=== PATIENT | female | born 1940 | race Caucasian/White ===

== ENCOUNTER 2019-06-25 13:39 | Emergency (ER) | payer OTHER, BC ==
--- OUTSIDE RECORDS SUMMARY | 2019-06-25 13:51 | XMS REPORT ---
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 adjustment of mA and/or KV according to patient size, and/or utilization of iterative reconstruction [facility] Valerie NAME: OG[address] PHYS: Dom Zamora [facility] [place] [address] : 1940 AGE: 78 SEX: F LOC: IsiahERS PHONE # : [phone] EXAM DATE: 01/26/2019 STATUS: PRE ER FAX #: RAD #: D/C DT PAGE 1 Signed Report (CONTINUED) Patient Name: CRYSTAL FOLEY Unit No: [id number] EXAMS: CPT CODE: [id number] CT HEAD/BRAIN W/O CONT 37089 <Continued> technique. FINDINGS: Sulfur Burner views and reformats demonstrate normal anatomic alignment of the cervical spine. There is no evidence of acute fracture or dislocation. There is multilevel degenerative disc disease with anterior and posterior osteophytes, most notably at C4-5 and C5- 6. The prevertebral soft tissues are unremarkable. No bony fragments are seen in the central canal. The soft tissue contents of the spinal canal are not well evaluated. However, no CT evidence of central canal hematoma is identified. IMPRESSION: 1. No evidence of fracture or dislocation of the cervical spine. 2. Please note that CT scan is a less sensitive modality to evaluate epidural hematoma or cord injury. If there is a clinical concern further evaluation with MRI of the cervical spine could be obtained. 3. Degenerative disc disease most notably at C4-5 and C5-6. at 1355 Reported and signed by: Harvey Bañuelos MD CC: Dom Reynolds MD Dictated Date/Time: 01/26/2019 (4517) Technologist: Petros Ramos - Agency CTDI: 47.06 DLP: 757.79 Trnscrpt: 01/26/2019 (3845) [email or web address] LORE Cruz NAME: CRYSTAL FOLEY [address] [place] [address] Blvd PHYS:Dom Zamora [place], [place] [address] : 1940 AGE: 78 SEX: F LOC: VAL PHONE #: [phone] EXAM DATE: 01/26/2019 STATUS: PRE ER FAX #: [phone] RAD #: D/C DT PAGE 2 Signed Report Patient Name: CRYSTAL FOLEY Unit No: [id number] EXAMS: CPT CODE: [id number] CT HEAD/BRAIN W/O [id number] <Continued& gt; Orig Print D/T: S: 01/26/2019 (1358) LORE Cruz NAME: O[address] PHYS: Dom Zam[place], [place] [address] : 1940 AGE: 78 SEX: F LOC: B.ERS PHONE #: [phone] EXAM DATE : 01/26/2019 STATUS: PRE ER FAX #: [phone] RAD #: D/C DT PAGE3 Signed ReportBASIC METABOLIC [id number] 13:15:00 Test Item Value Reference Range Comments SODIUM (test code=NA) 141.0 mmol/L 133-144 POTASSIUM (test code=K) 4.0 mmol/L 3.5-5.1 CHLORIDE (test code=CL) 109 mmol/L 95-105 CARBON DIOXIDE (test 26 mmol/L 21-32 code=CO2) ANION GAP (test code=GAP) 6.0 GAP calc 4.0-15.0 GLUCOSE (test code=GLU) 118 MG/DL 70-110 BLOOD UREA NITROGEN (test 11 MG/DL 7-18 code=BUN) CREATININE (test 0.73 MG/DL 0.55-1.30 Results may be depressed code=CREAT) if patient is takingN-Acetylcysteine (NAC) and Metamizole (Dipyrone). CALCIUM (test code=CA) 8.7 MG/DL 8.5-10.1 INDEX HEMOLYSIS (test 2 TRACE 10-25 MG 1 NORMAL code=HEMINDEX) Index/DL INDEX ICTERIC (test 1 NORMAL <2 MG 1 NORMAL code=ICTINDEX) Index/DL INDEX LIPEMIA (test 1 NORMAL <50 MG 1 NORMAL code=LIPINDEX) Index/DL PT AND [id number] 13:13:00 Test Item Value Reference Range Comments PT PATIENT (test 12.1 SECONDS 9.4-12.5 code=PTP) INTERNATIONAL NORMAL 1.07 INR Unit 0.88-1.13 RATIO (test code=INR) T herapeutic range for INR is dependent upon the situation.2.0-3.0 Prophylaxis / venous thromboembolism, Treatment of DVT, Acute myocardial infarction stroke prevention, Systemic embolism prevention in fibrillation3.0-4.5 AMI recurrence prevention, Systemic embolism prevention in prosthetic heart 3.0-5.4 AMI mortality reduction THROMBOPLASTIN TIME 26.3 SECONDS 24-37.7 THERAPEUTIC RANGE FOR PARTIAL (test code=PTT) UNFRACTIONATED HEPARIN=50.5-83.6 SEC This test is not recommended to monitor low molecularweight heparin or danaparoid. Order LMWH test COLLECTION THROUGH LINES THAT HAVE BEEN PREVIOUSLY FLUSHEDWITH HEPARIN SHOULD BE AVOIDED DUE TO POSSIBLE HEPARINCONTAMINATION EMERGENCY ROOM [id number] 13:12:00 Test Item Value Reference Range Comments DIAGNOSIS (test code=DIAG) SPECIMENS RCVED SPECIMEN RECEIVED CBC W/AUTO [id number] 13:03:00 Test Item Value Reference Range Comments WHITE BLOOD CELL (test code=WBC) 10.5 K/mm3 4.1-12.1 RED BLOOD CELL (test code=RBC) 4.86 M/mm3 3.8-5.5 HEMOGLOBIN (test code=HGB) 14.5 G/DL 10.6-15.8 HEMATOCRIT (test code=HCT) 40.9 % 31.8-47.4 MEAN CELL VOLUME (test code=MCV) 84.2 fL 80.1-101.1 MEAN CELL HGB (test code=MCH) 29.8 pg 25.3-35.3 MEAN CELL HGB CONCETRATION (test code=MCHC) 35.5 G/DL 32.7-35.1 RED CELL DISTRIBUTION WIDTH (test code=RDW) 14.0 % 12.2-16.4 RED CELL DISTRIBUTION WIDTH (test code=RDW-SD) 43.2 fL 36.4-46.3 PLATELET COUNT (test code=PLT) 184 K/mm3 155-337 MEAN PLATELET VOLUME (test code=MPV) 11.3 fL 6.8-11.2 GRANULOCYTE % (test code=GR%) 77.1 % 37.8-82.6 IMMATURE GRANULOCYTE % (test code=IG%) 0.8 % 0.0-2.0 LYMPHOCYTE % (test code=LY%) 13.1 % 14.1-45.4 MONOCYTE % (test code=MO%) 7.7 % 2.5-11.7 EOSINOPHIL % (test code=EO%) 0.8 % 0.0-6.2 BASOPHIL % (test code=BA%) 0.5 % 0.0-2.1 NUCLEATED RBC % (test code=NRBC%) 0.0 /100WBC% 0.0-1.0 GRANULOCYTE # (test code=GR#) 8.10 k/mm3 2.0-13.7 IMMATURE GRANULOCYTE # (test code=IG#) 0.08 K/mm3 0.00-0.03 LYMPHOCYTE # (test code=LY#) 1.37 K/mm3 0.6-3.8 MONOCYTE # (test code=MO#) 0.81 K/mm3 0.11-0.59 EOSINOPHIL # (test code=EO#) 0.08 K/mm3 0.0-0.4 BASOPHIL # (test code=BA#) 0.05 K/mm3 0.0-0.1 NUCLEATED RBC # (test code=NRBC#) 0.00 K/mm3 0.0-0.05
--- OUTSIDE RECORDS SUMMARY | 2019-06-25 13:51 | XMS REPORT | Clinical Summary ---
:1940 Author Organization [facility] [place] [address] Care Team Providers Name Role Phone Adelaida Baker MD Primary Care Provider Allergies Not on File Medications Not on file Active Problems Not on file Encounters Date Type Specialty Care Team Description 04/02/2019 Telephone Neurosurgery Earlene Skelton MD Prospective Patient from Last 3 Months Social History Tobacco Use Types Packs/Day Years Used Date Never Assessed Sex Assigned at Date Recorded Not on file Job Start Date Occupation Industry Not on file Not on file Not on file Travel History Travel Start Travel End No recent travel history available. Last Filed Vital Signs Not on file Plan of Treatment Health Maintenance Due Date Last Done Comments MEDICARE AWV 1940 TETANUS SHOT (ADULT) 1955 FALL SCREEN 2005 OSTEOPOROSIS SCREENING 2005 PNEUMOVAX >=65 (PPSV23) 2005 PREVNAR >=65 (PCV13) 2005 FLU VACCINE > 6 MONTHS 01/11/2019 MEDICARE AWV (Initial) Completed Results Not on filefrom Last 3 Months Insurance Payer Benefit Plan / Subscriber ID Effective Phone Address Type Group Dates MEDICARE MEDICARE PART A xxxxxxxxxxx 2005-Prese [address] Medicare [address] B - MEDICARE nt [id number] [place] [address] BLUE CROSS MEDICARE xxxxxxxxxxxx 2013-Prese [address] Medicare BLUE SHIELD SUPPLEMENT - nt [id number] [place] [address]
[2019-06-25] MEDS ORDERED: NA CHLORIDE 0.9% 1,000 ML ONE (15:01)
[2019-06-25] MEDS ORDERED: METHYLPREDNISOLONE 125 MG INJ ONE (15:01)
[2019-06-25 15:18] LABS: Absolute Lymphocytes (CBC) 1.1 K/uL (0.7-4.9); Basophils % 0.3 % (0-1.3); Hematocrit 42.2 % (36.0-45.0); Lymphocytes % 13.8 % (15.3-44.8)
--- NOTE | 2019-06-25 15:28 | RAD REPORT ---
EXAM DESCRIPTION: CT - Head Brain Wo Cont - 06/25/2019 3:01 pm COMPARISON: None. TECHNIQUE: Axial 5 mm thick images of the head were obtained without IV contrast. All CT scans are performed using dose optimization technique as appropriate and may include automated exposure control or mA/KV adjustment according to patient size. FINDINGS: No intracranial hemorrhage, mass, edema or shift of mid-line structures. No acute infarcti on changes seen. No abnormal extra-axial fluid collections. Mild atrophy and chronic ischemic changes are present. Ventricles are in proportion. Arterial tree calcifications are present. Mastoid air cells and visualized portions of the paranasal sinuses are clear. No acute bony findings. IMPRESSION: Negative non-contrast CT head examination for acute or significant finding.
[2019-06-25 15:30] LABS: Potassium 3.7 mmol/L (3.5-5.1)
--- NOTE | 2019-06-25 16:31 | EDPHYS ---
Physician Documentation [facility] Name: Geneva Pinedo Age: 78 yrs Sex: Female : 1940 Arrival Date: 06/25/2019 Time: 13:48 Bed 27 Private MD: ED Physician Kvng Flores HPI: 06/25 16:16 This 78 yrs old Female presents to ER via Ambulatory with complaints of Ear pkl Pain. 16:16 The patient complains of pain to the forehead, right cheek and left cheek. The patient pkl describes the headache as aching. Onset: The symptoms/episode began/occurred 1 month(s) ago. Associated signs and symptoms: Pertinent positives: sinus congestion, pain right ear. Seen at urgent care twice and given 2 rounds of antibiotics ( Amoxicillin and Cefepime ) without improvement. Historical: - Allergies: 13:56 No Known Allergies; mg2 - Home Meds: 13:56 Alprazolam Oral [Active]; sertraline oral oral [Active]; Claritin Oral [Active]; mg2 donepezil oral oral [Active]; - PMHx: 13:56 Alzheimers; Anxiety; insomnia; mg2 - PSHx: 13:56 stomach sx; Cholecystectomy; mg2 - Immunization history:: Flu vaccine is up to date. - Social history:: Smoking status: Patient/guardian denies using tobacco, Patient/guardian denies using alcohol, street drugs, IV drugs. - Ebola Screening: : No symptoms or risks identified at this time. ROS: 16:16 Eyes: Negative for injury, pain, redness, and discharge, ENT: Negative for injury, pkl pain, and discharge, Neck: Negative for injury, pain, and swelling, Cardiovascular: Negative for chest pain, palpitations, and edema, Respiratory: Negative for shortness of breath, cough, wheezing, and pleuritic chest pain, Abdomen/GI: Negative for abdominal pain, nausea, vomiting, diarrhea, and constipation, Back: Negative for injury and pain, : Negative for injury, bleeding, discharge, and swelling, Skin: Negative for injury, rash, and discoloration. 16:16 Neuro: Positive for headache, sinus congestion. Exam: 16:16 Head/Face: Normocephalic, atraumatic. Eyes: Pupils equal round and reactive to light, pkl extra-ocular motions intact. Lids and lashes normal. Conjunctiva and sclera are non-icteric and not injected. Cornea within normal limits. Periorbital areas with no swelling, redness, or edema. ENT: Nares patent. No nasal discharge, no septal abnormalities noted. Tympanic membranes are normal and external auditory canals are clear. Oropharynx with no redness, swelling, or masses, exudates, or evidence of obstruction, uvula midline. Mucous membranes moist. Neck: Trachea midline, no thyromegaly or masses palpated, and no cervical lymphadenopathy. Supple, full range of motion without nuchal rigidity, or vertebral point tenderness. No Meningismus. Chest/axilla: Normal chest wall appearance and motion. Nontender with no deformity. No lesions are appreciated. Cardiovascular: Regular rate and rhythm with a normal S1 and S2. No gallops, murmurs, or rubs. Normal PMI, no JVD. No pulse deficits. Respiratory: Lungs have equal breath sounds bilaterally, clear to auscultation and percussion. No rales, rhonchi or wheezes noted. No increased work of breathing, no retractions or nasal flaring. Abdomen/GI: Soft, non-tender, with normal bowel sounds. No distension or tympany. No guarding or rebound. No evidence of tenderness throughout. Back: No spinal tenderness. No costovertebral tenderness. Full range of motion. Skin: Warm, dry with normal turgor. Normal color with no rashes, no lesions, and no evidence of cellulitis. MS/ Extremity: Pulses equal, no cyanosis. Neurovascular intact. Full, normal range of motion. Neuro: Awake and alert, GCS 15, oriented to person, place, time, and situation. Cranial nerves II-XII grossly intact. Motor strength 5/5 in all extremities. Sensory grossly intact. Cerebellar exam normal. Normal gait. Vital Signs: 13:54 BP 147 / 70; Pulse 63; Resp 18; Temp 98.1; Pulse Ox 100% on R/A; Weight 46.27 kg; mg2 Height 5 ft. 0 in. (152.40 cm); Pain 7/10; 16:33 BP 136 / 71; Pulse 59; Resp 16; Pulse Ox 99% on R/A; em 13:54 Body Mass Index 19.92 (46.27 kg, 152.40 cm) mg2 MDM: 14:22 Patient medically screened. pkl 16:26 Data reviewed: vital signs, nurses notes, lab test result(s), radiologic studies, CT pkl scan. ED course: Discussed lab. and CT Scan results with patient and daughter. Advised to use Flonase nasal spray twice daily and continue Claritin. Advised follow with PCP next week. Patient and daughter understood instructions. 06/25 14:42 Order name: CBC with Diff; Complete Time: 16:14 pkl 06/25 14:42 Order name: Chem 7; Complete Time: 16:14 pkl 06/25 14:42 Order name: CT Head Brain wo Cont; Complete Time: 16:14 pkl Administered Medications: 15:18 Drug: NS 0.9% 1000 ml Route: IV; Rate: 100 ml/hr; Site: right antecubital; em 17:00 Follow up: IV Status: Order to discontinue infusion; IV Intake: 200ml em 15:18 Drug: SOLU-Medrol 125 mg Route: IVP; Site: right antecubital; em 16:28 Follow up: Response: No adverse reaction em Disposition: 06/25/19 16:30 Discharged to Home. Impression: Sinusitis. - Condition is Stable. - Medication Reconciliation Form, Thank You Letter, Antibiotic Education, Prescription Opioid Use form. - Follow up: Private Physician; When: 1 week; Reason: Re-evaluation by your physician. - Problem is new. - Symptoms have improved. Signatures: Dispatcher [employer] EDKvng Wallace MD MD pkl Viktor Irvin RN RN Maxwell Carnes RN RN mg2 Corrections: (The following items were deleted from the chart) 17: 16:30 06/25/2019 16:30 Discharged to Home. Impression: Sinusitis. Condition is Stable. em Forms are Medication Reconciliation Form, Thank You Letter, Antibiotic Education, Prescription Opioid Use. Follow up: Private Physician; When: 1 week; Reason: Re-evaluation by your physician. Problem is new. Symptoms have improved. pkl
--- NOTE | 2019-06-25 16:31 | ER ---
Nurse's Notes [facility] Name: Geneva Pinedo Age: 78 yrs Sex: Female : 1940 Arrival Date: 06/25/2019 Time: 13:48 Bed 27 Private MD: Diagnosis: Sinusitis Presentation: 06/25 13:50 Presenting complaint: Patient states: daughter said: [facility] and she was on amoxicillin and then back there last Jun 19 and prescribed with cefepime but she is still having sinusitis. Transition of care: patient was not received from another setting of care. Onset of symptoms was June 2019. Risk Assessment: Do you want to hurt yourself or someone else? Patient reports no desire to harm self or others. Initial Sepsis Screen: Does the patient meet any 2 criteria? No. Patient's initial sepsis screen is negative. Does the patient have a suspected source of infection? No. Patient's initial sepsis screen is negative. Care prior to arrival: None. 13:50 Method Of Arrival: Ambulatory mg2 13:50 Acuity: DONATO 4 mg2 Historical: - Allergies: 13:56 No Known Allergies; mg2 - Home Meds: 13:56 Alprazolam Oral [Active]; sertraline oral oral [Active]; Claritin Oral [Active]; mg2 donepezil oral oral [Active]; - PMHx: 13:56 Alzheimers; Anxiety; insomnia; mg2 - PSHx: 13:56 stomach sx; Cholecystectomy; mg2 - Immunization history:: Flu vaccine is up to date. - Social history:: Smoking status: Patient/guardian denies using tobacco, Patient/guardian denies using alcohol, street drugs, IV drugs. - Ebola Screening: : No symptoms or risks identified at this time. Screenin:00 Abuse screen: Denies threats or abuse. Nutritional screening: No deficits noted. em Tuberculosis screening: No symptoms or risk factors identified. Fall Risk None identified. Assessment: 15:00 General: Appears in no apparent distress. comfortable, Behavior is calm, cooperative, em Denies fever. Pain: Complains of pain in left ear Pain currently is 7 out of 10 on a pain scale. Neuro: Level of Consciousness is awake, alert, obeys commands, Oriented to person, place, time, situation, Appropriate for age. Cardiovascular: Capillary refill < 3 seconds Patient's skin is warm and dry. Respiratory: Airway is patent Respiratory effort is even, unlabored, Respiratory pattern is regular, symmetrical, Denies cough. EENT: Reports nasal congestion since for 3 weeks pain in left ear. Derm: Skin is intact, is fragile, Skin is pink, warm \T\ dry. Musculoskeletal: Capillary refill < 3 seconds, Range of motion: intact in all extremities. 16:30 Reassessment: Patient appears in no apparent distress at this time. Patient and/or em family updated on plan of care and expected duration. Pain level reassessed. Patient is alert, oriented x 3, equal unlabored respirations, skin warm/dry/pink. Patient states feeling better. Patient states symptoms have improved. Vital Signs: 13:54 BP 147 / 70; Pulse 63; Resp 18; Temp 98.1; Pulse Ox 100% on R/A; Weight 46.27 kg; mg2 Height 5 ft. 0 in. (152.40 cm); Pain 7/10; 16:33 BP 136 / 71; Pulse 59; Resp 16; Pulse Ox 99% on R/A; em 13:54 Body Mass Index 19.92 (46.27 kg, 152.40 cm) mg2 ED Course: 13:48 Patient arrived in ED. iw 13:54 Triage completed. mg2 13:56 Arm band placed on. mg2 14:18 Viktor Irvin, RN is Primary Nurse. em 14:22 Kvng Flores MD is Attending Physician. pkl 14:58 Initial lab(s) drawn, by me, sent to lab. Inserted saline lock: 22 gauge in right lt1 antecubital area, using aseptic technique. 15:00 Patient has correct armband on for positive identification. Bed in low position. Call em light in reach. Adult w/ patient. Pulse ox on. NIBP on. 15:01 CT Head Brain wo Cont In Process Unspecified. EDMS 16:59 No provider procedures requiring assistance completed. IV discontinued, intact, em bleeding controlled, No redness/swelling at site. Pressure dressing applied. Administered Medications: 15:18 Drug: NS 0.9% 1000 ml Route: IV; Rate: 100 ml/hr; Site: right antecubital; em 17:00 Follow up: IV Status: Order to discontinue infusion; IV Intake: 200ml em 15:18 Drug: SOLU-Medrol 125 mg Route: IVP; Site: right antecubital; em 16:28 Follow up: Response: No adverse reaction em Intake: 17:00 IV: 200ml; Total: 200ml. em Outcome: 16:30 Discharge ordered by . adelina 16:59 Discharged to home ambulatory, with family. em 16:59 Condition: good 16:59 Discharge instructions given to patient, family, Instructed on discharge instructions, follow up and referral plans. Demonstrated understanding of instructions, follow-up care. 17:01 Patient left the ED. em Signatures: Dispatcher [employer] Kvng Kim MD MD pkl Munoz, Edgar, RN RN Adelaida Quintanilla RN RN iw Gardose, Michele, RN RN [facility] Yajaira Ta [facility]
[2019-06-25 17:48] VITALS: TEMP 98.1
[2019-06-25 17:49] VITALS: BP 136/71; O2SAT 99
== END 2019-06-25 17:01 | disposition home or self-care (01) ==
LOC: ER 13:39
DX: J32.9 Chronic sinusitis, unspecified (principal); G30.9 Alzheimer's disease, unspecified; F02.80 Dementia in other diseases classified elsewhere, unspecified severity, without behavioral disturbance, psychotic disturbance, mood disturbance, and anxiety; F41.9 Anxiety disorder, unspecified
CPT/HCPCS: 96361; 85025; 80048; 36415; 70450; 96374; 99284; J7030; J2930